=== PATIENT | male | born 1960 | race American Indian/Alaskan Native ===

== ENCOUNTER 2016-07-07 09:54 | Emergency (ER) | payer OTHER ==
[2016-07-07 10:34] LABS: Basophils % (Auto) 0.3 % (0.0-1.8); Eosinophils % (Auto) 1.6 % (0.0-4.3); Hemoglobin 12.4 gm/dl (11.8-15.2); Mean Corpuscular HGB Conc 33 % (32-34); Mean Corpuscular Hemoglobin 33 pg (28-32); Mean Corpuscular Volume 98 fl (84-94); Platelet Count 175 K/mm3 (140-440); Red Blood Count 3.77 M/mm3 (3.65-5.03); Red Cell Distribution Width 13.9 % (13.2-15.2)
[2016-07-07 10:53] LABS: Alanine Aminotransferase 26 units/L (7-56); Albumin 2.5 g/dL (3.9-5); Albumin/Globulin Ratio 0.5 %; Alkaline Phosphatase 134 units/L (35-129); Anion Gap 16 mmol/L; BUN/Creatinine Ratio 15.45; Blood Urea Nitrogen 17 mg/dL (9-20); Calcium 8.3 mg/dL (8.4-10.2); Carbon Dioxide 27 mmol/L (22-30); Chloride 96.2 mmol/L (98-107); Creatine Kinase 50 units/L (55-170); Glucose 119 mg/dL (75-100); Lipase 97 units/L (13-60); Potassium 3.8 mmol/L (3.6-5.0); Sodium 135 mmol/L (137-145); Total Protein 7.4 g/dL (6.3-8.2)
[2016-07-07 10:55] LABS: Creatine Kinase MB < 1.0 ng/mL (0.0-4.0)
--- NOTE | 2016-07-08 06:19 | Emergency Department Report ---
ED General Adult HPI - General Chief complaint: Chest Pain Stated complaint: STOMACH AND CHEST PAIN/SOB Time Seen by Provider: 07/08/16 06:14 Source: patient, RN notes reviewed Mode of arrival: Ambulatory Limitations: No Limitations - History of Present Illness Initial comments: This is a 56-year-old male. He is previously known to me. Has a past medical history of alcohol-induced cirrhosis, hypertension, abdominal ascites. He is visiting from [place]. He presents to the ER complaining of epigastric and bilateral upper quadrant abdominal pressure, discomfort, swelling. To me he denies chest pain and shortness of breath. Denies nausea, vomiting or diaphoresis. He reports that he feels fluid overloaded in his abdomen, and requests paracentesis. His symptoms have been going on for 2 weeks. They're gradual, worsening with physical exertion, decreased with rest. There is no leg pain. There is no leg swelling. No fevers or chills. Patient reports that his symptoms today are somewhat to prior episodes of fluid overload and cirrhosis. -: Gradual Location: abdomen Severity scale (0 -10): 10 Quality: aching Consistency: constant Improves with: other (paracentesis) Associated Symptoms: denies: chest pain, cough, diaphoresis, fever/chills, headaches, loss of appetite, malaise, nausea/vomiting, rash, seizure, shortness of breath, syncope, weakness - Related Data Home Medications Medication Instructions Recorded Confirmed Last Taken Cephalexin [Keflex] 500 mg PO Q6HR 07/08/16 07/08/16 07/07/16 Furosemide [Lasix TAB] 40 mg PO QDAY 07/08/16 07/08/16 07/07/16 Lisinopril [Zestril TAB] 10 mg PO QDAY 07/08/16 07/08/16 07/07/16 Spironolactone [Aldactone] 25 mg PO QDAY 07/08/16 07/08/16 07/07/16 traMADol [Ultram] 50 mg PO Q6HR 07/08/16 07/08/16 07/07/16 Allergies Allergy/AdvReac Type Severity Reaction Status Date / Time No Known Allergies Allergy Unverified 07/07/16 10:13 ED Review of Systems ROS: Stated complaint: STOMACH AND CHEST PAIN/SOB Other details as noted in HPI Constitutional: denies: fever Eyes: denies: vision change ENT: denies: epistaxis Respiratory: denies: cough Cardiovascular: denies: chest pain Gastrointestinal: abdominal pain Genitourinary: as per HPI Musculoskeletal: back pain Skin: as per HPI Neurological: as per HPI Psychiatric: as per HPI ED Past Medical Hx - Past Medical History Hx Hypertension: Yes Hx Liver Disease: Yes (Cirrhosis) Hx Asthma: Yes - Surgical History Past Surgical History?: No - Social History Smoking Status: Current Every Day Smoker Substance Use Type: None - Medications Home Medications: Home Medications Medication Instructions Recorded Confirmed Last Taken Type Cephalexin [Keflex] 500 mg PO Q6HR 07/08/16 07/08/16 07/07/16 History Furosemide [Lasix TAB] 40 mg PO QDAY 07/08/16 07/08/16 07/07/16 History Lisinopril [Zestril TAB] 10 mg PO QDAY 07/08/16 07/08/16 07/07/16 History Spironolactone [Aldactone] 25 mg PO QDAY 07/08/16 07/08/16 07/07/16 History traMADol [Ultram] 50 mg PO Q6HR 07/08/16 07/08/16 07/07/16 History ED Physical Exam - General Limitations: No Limitations General appearance: alert, in no apparent distress - Head Head exam: Present: atraumatic, normocephalic - Eye Eye exam: Present: normal appearance, EOMI. Absent: nystagmus - ENT ENT exam: Present: normal exam, normal orophraynx, mucous membranes moist, normal external ear exam - Neck Neck exam: Present: normal inspection, full ROM. Absent: tenderness, meningismus - Respiratory Respiratory exam: Present: normal lung sounds bilaterally. Absent: respiratory distress, wheezes, rales, rhonchi, stridor, decreased breath sounds - Cardiovascular Cardiovascular Exam: Present: regular rate, normal rhythm, normal heart sounds. Absent: bradycardia, tachycardia, irregular rhythm, systolic murmur, diastolic murmur, rubs, gallop - GI/Abdominal GI/Abdominal exam: Present: soft, distended, other (ascites is noted diffusely in the abdomen. Nontender. No rebound, guarding or peritoneal signs.). Absent : tenderness, guarding, rebound, rigid, pulsatile mass - Rectal Rectal exam: Present: deferred - Extremities Exam Extremities exam: Present: normal inspection, full ROM, normal capillary refill. Absent: tenderness, pedal edema, joint swelling, calf tenderness - Back Exam Back exam: Present: normal inspection, full ROM. Absent: tenderness, CVA tenderness (R), CVA tenderness (L), muscle spasm, paraspinal tenderness, vertebral tenderness - Neurological Exam Neurological exam: Present: alert, oriented X3, other (Extraocular movements intact. Tongue midline. No facial droop. Facial sensation intact to light touch in the V1, V2, V3 distribution bilaterally. 5 and 5 strength in 4 extremities.. Sensation is intact to light touch in 4 extremities.). Absent: motor sensory deficit - Psychiatric Psychiatric exam: Present: normal affect, normal mood - Skin Skin exam: Present: warm, dry, intact, normal color. Absent: rash ED Course Vital Signs 07/07/16 07/08/16 07/08/16 10:05 03:46 07:30 Temperature 97.9 F 98.4 F Pulse Rate 95 H 89 93 H Respiratory 20 12 16 Rate Blood Pressure 143/90 Blood Pressure 124/86 102/63 [Right] O2 Sat by Pulse 100 99 100 Oximetry 07/08/16 07/08/16 07/08/16 07:49 10:07 12:41 Temperature Pulse Rate 83 91 H Respiratory 16 12 16 Rate Blood Pressure Blood Pressure 100/63 95/59 [Right] O2 Sat by Pulse 100 100 99 Oximetry - Reevaluation(s) Reevaluation #1: 07/08/16 07:20 Differential diagnosis: Ascites, abdominal ascites, vitamin overload, incidental abnormal EKG Assessment and plan: 56-year-old male with abdominal pressure, swelling, ascites. To me he denies chest pain, he denies any shortness of breath. When I go to evaluate the patient, he is sleeping comfortably in a stretcher. He is saturating well. His chest x-ray is unremarkable. I have asked the patient multiple times about the presence of chest pain, he denies chest pain, admits to only abdominal pain. His EKG is morphologically abnormal with no prior for comparison, but there are 3 negative troponins, and the patient's symptoms have been present for 2 weeks. An ultrasound-guided paracentesis is ordered. Patient can follow up with outpatient primary care or cardiology locally for further evaluation of his abnormal EKG. Clinically doubt spontaneous bacterial peritonitis given lack of severe abdominal tenderness, rebound, guarding, leukocytosis, fever. Nevertheless, I will obtain a Gram stain and cell count. Reevaluation #2: 07/08/16 12:30 Ascites fluid analysis is not consistent with spontaneous bacterial peritonitis. Patient had fluid taken off. Ultrasound-guided paracentesis. Resting comfortably. No distress. Afebrile. He will be discharged to follow up with outpatient primary care/gastroenterology. Belly soft on repeat examination. Patient has had a prolonged stay in the emergency department, without any significant clinical decompensation. ED Medical Decision Making - Lab Data Result diagrams: 07/07/16 10:26 07/07/16 10:26 Vital Signs 07/07/16 07/08/16 10:05 03:46 Temperature 97.9 F 98.4 F Pulse Rate 95 H 89 Respiratory 20 12 Rate Blood Pressure 143/90 Blood Pressure 124/86 [Right] O2 Sat by Pulse 100 99 Oximetry Lab Results 07/07/16 07/07/16 07/07/16 Range/Units 10:26 10:26 10:26 WBC 4.0 L (4.5-11.0) K/mm3 RBC 3.77 (3.65-5.03) M/mm3 Hgb 12.4 (11.8-15.2) gm/dl Hct 37.0 (35.5-45.6) % MCV 98 H (84-94) fl MCH 33 H (28-32) pg MCHC 33 (32-34) % RDW 13.9 (13.2-15.2) % Plt Count 175 (140-440) K/mm3 Lymph % (Auto) 43.7 H (13.4-35.0) % [place] % (Auto) 15.1 H (0.0-7.3) % Eos % (Auto) 1.6 (0.0-4.3) % Baso % (Auto) 0.3 (0.0-1.8) % Lymph # 1.7 (1.2-5.4) K/mm3 [place] # 0.6 (0.0-0.8) K/mm3 Eos # 0.1 (0.0-0.4) K/mm3 Baso # 0.0 (0.0-0.1) K/mm3 Seg Neutrophils % 39.3 L (40.0-70.0) % Seg Neutrophils # 1.6 L (1.8-7.7) K/mm3 Sodium 135 L (137-145) mmol/L Potassium 3.8 (3.6-5.0) mmol/L Chloride 96.2 L (98-107) mmol/L Carbon Dioxide 27 (22-30) mmol/L Anion Gap 16 mmol/L BUN 17 (9-20) mg/dL Creatinine 1.1 (0.8-1.5) mg/dL Estimated GFR > 60 ml/min BUN/Creatinine Ratio 15.45 % Glucose 119 H (75-100) mg/dL Calcium 8.3 L (8.4-10.2) mg/dL Total Bilirubin 1.0 (0.1-1.2) mg/dL AST 52 H (5-40) units/L ALT 26 (7-56) units/L Alkaline Phosphatase 134 H (35-129) units/L Total Creatine Kinase 50 L (55-170) units/L CK-MB (CK-2) < 1.0 (0.0-4.0) ng/mL CK-MB (CK-2) Rel Index 2.0 (0-4) Troponin T < 0.010 (0.00-0.029) ng/mL NT-Pro-B Natriuret Pep (0-900) pg/mL Total Protein 7.4 (6.3-8.2) g/dL Albumin 2.5 L (3.9-5) g/dL Albumin/Globulin Ratio 0.5 % Lipase 97 H (13-60) units/L 07/07/16 07/07/16 07/08/16 Range/Units 13:09 15:46 06:25 WBC (4.5-11.0) K/mm3 RBC (3.65-5.03) M/mm3 Hgb (11.8-15.2) gm/dl Hct (35.5-45.6) % MCV (84-94) fl MCH (28-32) pg MCHC (32-34) % RDW (13.2-15.2) % Plt Count (140-440) K/mm3 Lymph % (Auto) (13.4-35.0) % [place] % (Auto) (0.0-7.3) % Eos % (Auto) (0.0-4.3) % Baso % (Auto) (0.0-1.8) % Lymph # (1.2-5.4) K/mm3 [place] # (0.0-0.8) K/mm3 Eos # (0.0-0.4) K/mm3 Baso # (0.0-0.1) K/mm3 Seg Neutrophils % (40.0-70.0) % Seg Neutrophils # (1.8-7.7) K/mm3 Sodium (137-145) mmol/L Potassium (3.6-5.0) mmol/L Chloride (98-107) mmol/L Carbon Dioxide (22-30) mmol/L Anion Gap mmol/L BUN (9-20) mg/dL Creatinine (0.8-1.5) mg/dL Estimated GFR ml/min BUN/Creatinine Ratio % Glucose (75-100) mg/dL Calcium (8.4-10.2) mg/dL Total Bilirubin (0.1-1.2) mg/dL AST (5-40) units/L ALT (7-56) units/L Alkaline Phosphatase (35-129) units/L Total Creatine Kinase (55-170) units/L CK-MB (CK-2) (0.0-4.0) ng/mL CK-MB (CK-2) Rel Index (0-4) Troponin T < 0.010 < 0.010 (0.00-0.029) ng/mL NT-Pro-B Natriuret Pep 90.32 (0-900) pg/mL Total Protein (6.3-8.2) g/dL Albumin (3.9-5) g/dL Albumin/Globulin Ratio % Lipase (13-60) units/L - EKG Data EKG shows normal: sinus rhythm Rate: normal - EKG Data When compared to previous EKG there are: previous EKG unavailable 07/08/16 07:21 normal sinus, 89 beats per minute, low voltage, poor R wave progression, abnormal EKG, not morphologically consistent with STEMI. There is no prior EKG available for comparison. Normal axis, prolonged QTC. - Radiology Data Radiology results: image reviewed Critical care attestation.: If time is entered above; I have spent that time in minutes in the direct care of this critically ill patient, excluding procedure time. ED Disposition Clinical Impression: Ascites Disposition: DISCHARGED TO HOME OR SELFCARE Is pt being admited?: No Does the pt Need Aspirin: No Condition: Stable Instructions: Ascites (ED) Additional Instructions: Continue outpatient medications. Follow up with a primary care doctor or environmental health nurse within the next week. Dr. Yasir Gray is a local primary care doctor. Dr. Moore is a local environmental health nurse. Return to the ER right away with new pain, worsened pain, migration of pain, fevers or chills, intractable nausea or vomiting, inability to tolerate liquid feeds. Cultures were sent today, results will be available in the next 3-5 days. Have a primary care doctor contact the medical records department to obtain culture results. Referrals: PRIMARY CARE, [Primary Care Provider] - 3-5 Days YASIR GRAY MD [Staff Physician] - 3-5 Days MEMO MOORE MD [Staff Physician] - 3-5 Days
[2016-07-08] MEDS ORDERED: BENTYL IM ONE (07:23)
--- NOTE | 2016-07-08 07:31 | XRay Report ---
AP CHEST: HISTORY: Dyspnea AP view of the chest demonstrates a normal mediastinal and cardiac contour with clear lungs and normal bony and soft tissue structures. IMPRESSION: Unremarkable AP chest.
[2016-07-08 07:59] LABS: INR 1.26 (0.87-1.13)
[2016-07-08 08:00] LABS: Partial Thromboplastin Time 29.3 Sec. (24.2-36.6)
--- NOTE | 2016-07-08 10:16 | Procedure Note ---
Date of procedure: 07/08/16 Pre-op diagnosis: Ascites Post-op diagnosis: same Procedure: Paracentesis Anesthesia: local Surgeon: JESÚS PASCUAL Estimated blood loss: none Specimen disposition: to lab Condition: stable (Back to ER)
[2016-07-08 12:43] VITALS: BP 95/59
--- NOTE | 2016-07-08 13:17 | Ultrasound Report ---
ULTRASOUND-GUIDED PARACENTESIS: HISTORY: Cirrhosis. PROCEDURE: The patient's skin surface was prepped and draped using sterile technique. Local anesthetic was injected into the skin over the right lower quadrant. Using sonographic guidance, a 5 Frisian Yueh catheter was inserted. 7.8 L of serous fluid was aspirated, and appropriate samples were sent to the laboratory. The patient tolerated the procedure well clinically and was sent back to the emergency room in satisfactory condition.
== END 2016-07-08 12:43 | disposition home or self-care (01) ==
LOC: ED 09:54
DX: R18.8 Other ascites (principal); I10 Essential (primary) hypertension; K74.60 Unspecified cirrhosis of liver; J45.909 Unspecified asthma, uncomplicated; F17.200 Nicotine dependence, unspecified, uncomplicated
CPT/HCPCS: 36415; 49083; 71010; 80053; 82550; 82553; 83690; 83880; 84484; 85025; 85610; 85730; 87116; 88112; 88305; 89051; 93005; 93010; 96372; 99285; J0500